=== PATIENT | male | born 1995 | race African-American/Black ===

== ENCOUNTER → 2024-10-20 11:12 | Outpatient (CLI) | payer OTHER, SELFPAY ==
--- NOTE | 2024-10-20 11:14 | DI.RAD.S_ITS ---
PROCEDURE: [place] ARTHROGRAM SHOULDER LT INDICATIONS: BILATERAL SHOULDER INSTABILITY COMPARISON: None. TECHNIQUE: The indications, alternatives, benefits, risks, and complications of the procedure were explained to the patient. Written informed consent was obtained and placed in the chart. The shoulder was examined fluoroscopically and a site for needle placement chosen for entry into the glenohumeral joint from an anterior approach. The skin was prepped and draped in a sterile fashion, and 1% lidocaine infiltrated from skin down to joint capsule. A spinal needle was inserted into the glenohumeral joint, and a small amount of iodinated contrast media injected to confirm intra-articular placement of the needle tip. This was followed by approximately 12 mL dilute solution of a gadolinium containing MR contrast agent. The needle was removed and a dressing was applied. The patient was given postprocedural instructions and sent to the MR suite for MR imaging. FINDINGS: A single fluoroscopic spot image demonstrates intra-articular location of injected iodinated contrast. IMPRESSION: Successful fluoroscopically guided administration of dilute Gadolinium solution into the shoulder joint for MR arthrogram. Dictated by: Armando Henson M.D. on 10/20/2024 at 14:48 Approved by: Armando Henson M.D. on 10/20/2024 at 14:48
--- NOTE | 2024-10-20 11:14 | DI.MRI.S_ITS ---
PROCEDURE: MR SHOULDER LT W CON INDICATIONS: BILATERAL SHOULDER INSTABILITY TECHNIQUE: Multiplanar, multisequence images of the left shoulder were obtained after the administration of intra-articular contrast. Please see the same-day left shoulder arthrogram report for details regarding the intra-articular contrast administration. There was no adverse reaction. COMPARISON: [place], [place] ARTHROGRAM SHOULDER LT, 10/20/2024, 10:37. FINDINGS: Image quality: Excellent. Bones: The bone marrow signal is normal. There is no acute fracture or dislocation. Acromioclavicular joint: There is no significant degenerative change. There is a type 1 acromion. Glenohumeral joint: There is no significant osteoarthritis. Gadolinium-based intra-articular contrast is present, which fails to extend into the subacromial-subdeltoid bursa. Labrum: There is a small nondisplaced tear with fraying of the posterior labrum at the 3 o'clock position (3 o'clock is posterior; 8/6) in conjunction with an adjacent 0.5 cm paralabral cyst at the 4 o'clock position (8/5). Cartilage: There is deep, partial-thickness chondral loss at the glenoid articular cartilage subjacent to the labral tear (7/12). Subacromial-subdeltoid bursa: There is a trace amount of fluid in the subacromial-subdeltoid bursa. Rotator cuff: The supraspinatus tendon is intact. The infraspinatus tendon is intact. The subscapularis tendon is intact. The teres minor tendon is intact. Long head of biceps tendon: The long head of the biceps tendon is present within the bicipital groove and intact. Musculature: Muscle bulk is preserved without evidence of denervation or fatty atrophy. Inferior glenohumeral ligaments/Axillary pouch: The axillary pouch is normal in thickness and signal. Coracoclavicular and coracoacromial ligaments: The coracoclavicular and coracoacromial ligaments are normal. Other: No other acute abnormality. IMPRESSION: 1. Small nondisplaced posterior labral tear with fraying and an adjacent 0.5 cm paralabral cyst, and subjacent articular cartilage damage. 2. No other acute MR abnormality of the left shoulder. Dictated by: Gerry Jaime M.D. on 10/20/2024 at 13:15 Approved by: Gerry Jaime M.D. on 10/20/2024 at 13:26
--- NOTE | 2024-10-20 11:22 | DI.RAD.S_ITS ---
PROCEDURE: [place] ARTHROGRAM SHOULDER RT INDICATIONS: BILATERAL SHOULDER INSTABILITY COMPARISON: [facility], , [place] ARTHROGRAM SHOULDER LT, 10/20/2024, 10:37. TECHNIQUE: The indications, alternatives, benefits, risks, and complications of the procedure were explained to the patient. Written informed consent was obtained and placed in the chart. The shoulder was examined fluoroscopically and a site for needle placement chosen for entry into the glenohumeral joint from an anterior approach. The skin was prepped and draped in a sterile fashion, and 1% lidocaine infiltrated from skin down to joint capsule. A spinal needle was inserted into the glenohumeral joint, and a small amount of iodinated contrast media injected to confirm intra-articular placement of the needle tip. This was followed by approximately 12 mL dilute solution of a gadolinium containing MR contrast agent. The needle was removed and a dressing was applied. The patient was given postprocedural instructions and sent to the MR suite for MR imaging. FINDINGS: A single fluoroscopic spot image demonstrates intra-articular location of injected iodinated contrast. IMPRESSION: Successful fluoroscopically guided administration of dilute Gadolinium solution into the shoulder joint for MR arthrogram. Dictated by: Armando Henson M.D. on 10/20/2024 at 15:33 Approved by: Armando Henson M.D. on 10/20/2024 at 15:33
--- NOTE | 2024-10-20 11:23 | DI.MRI.S_ITS ---
PROCEDURE: MR SHOULDER RT W CON INDICATIONS: BILATERAL SHOULDER INSTABILITY TECHNIQUE: After the administration of 12 mL of dilute intra-articular Gadolinium contrast, oblique coronal T1 and T2 spin echo with fat saturation, oblique sagittal T1 spin echo with and without fat saturation, oblique sagittal T2 fast spin echo with fat saturation, axial T1 spin echo with fat saturation through the shoulder. COMPARISON: None. FINDINGS: Image quality: Somewhat limited evaluation given patient motion. Rotator cuff: The supraspinatus, infraspinatus, and teres minor, are unremarkable. The subscapularis is unremarkable. No muscle edema or fatty atrophy. Bones and bursae: No significant degenerative changes of the acromioclavicular joint. Type 1 acromion. No os acromiale. Mild subacromial/subdeltoid bursitis. No contrast extravasating into the subacromial/subdeltoid bursa. Mild subchondral cystic changes at the greater tuberosity, reactive. No acute fracture. No focal chondral defect of the glenohumeral articulation. Capsule and soft tissues: Superior labral tear, extending anteriorly to the anterior labrum. No paralabral cyst. The extra-articular biceps tendon and the intra-articular biceps tendon unremarkable. No intra-articular body. IMPRESSION: 1. Labral tear. Dictated by: Prudence Le M.D. on 10/20/2024 at 14:13 Approved by: Prudence Le M.D. on 10/20/2024 at 14:23
[2024-10-20] MEDS: SODIUM CHLORIDE 0.9 % 20 ML VIAL IV ×2 (11:40→12:40)
[2024-10-20] MEDS: LIDOCAINE 1% 20 ML INJ (12:40)
== END ==
PROVIDERS: PCP Preventive Medicine Aerospace Medicine; Referring Provider Student in an Organized Health Care Education/Training Program; Visit Provider Student in an Organized Health Care Education/Training Program
DX: M25.311 Other instability, right shoulder (principal); M25.312 Other instability, left shoulder; S43.492A Other sprain of left shoulder joint, initial encounter; S43.491A Other sprain of right shoulder joint, initial encounter
CPT/HCPCS: 23350; 73040; 73222; A9579; Q9967